=== PATIENT | male | born 2000 | race Hispanic/Latino ===

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

== ENCOUNTER 2024-01-29 20:43 | Emergency (ER) | payer SELFPAY ==
[2024-01-29] MEDS ORDERED: Tetracaine 0.5% PF 4 ML BOT ONE (21:13)
[2024-01-29] MEDS ORDERED: Fluorescein Opthalmic Strip ONE (21:13)
== END 2024-01-29 21:57 | disposition home or self-care (01) ==
LOC: NAV ERS 20:43
DX: H00.021 Hordeolum internum right upper eyelid (principal); H00.022 Hordeolum internum right lower eyelid; Z87.891 Personal history of nicotine dependence
CPT/HCPCS: 99283